=== PATIENT | male | born 1950 | race Caucasian/White ===

== ENCOUNTER 2018-04-10 14:35 | Inpatient (IN) | payer MEDICARE, BC ==
[2018-04-10 16:44] VITALS: BMI 21.7
[2018-04-10] MEDS ORDERED: Ondansetron ODT 4 MG TAB PO PRN (17:19)
[2018-04-10] MEDS ORDERED: Bisacodyl 5 MG TAB PO PRN (17:19)
[2018-04-10] MEDS ORDERED: HYDROcodone/Acetaminophen 5/325 mg Tablet PO PRN ×2 (17:19)
[2018-04-10] MEDS ORDERED: Ondansetron PF 4 MG/2 ML Vial IVP PRN (17:19)
[2018-04-10] MEDS: Acetaminophen 325 MG TAB PO PRN (18:12)
[2018-04-10] MEDS: Sodium Chloride 0.9% 1,000 ML IV SCH (18:13)
[2018-04-10 18:26] LABS: #Basophils 0.1 thou/uL (0.0-0.2); #Eosinphils 0.1 thou/uL (0.0-0.7); #Lymphocytes 2.3 thou/uL (1.20-3.40); #Monocytes 1.4 thou/uL (0.11-0.59); #Neutrophils 7.9 thou/uL (1.40-6.50); %Basophils 0.6 % (0.0-1.0); %Eosinophils 0.8 % (0.0-10.0); %Lymphocytes 19.4 % (21.0-51.0); %Monocytes 11.9 % (0.0-10.0); %Neutrophils 67.4 % (42.0-75.0); Hemoglobin 14.1 g/dL (14.0-18.0); Mean Corpuscular HGB CONC 33.8 g/dL (32.0-36.0); Mean Corpuscular Volume 91.7 fL (78.0-98.0); Mean Platelet Volume 6.5 fL (7.4-10.4); Platelet Count 380 thou/uL (130-400); RBC Distribution Width 11.1 % (11.5-14.5); Red Blood Cell (RBC) Count 4.56 mill/uL (4.70-6.10); White Blood Cell (WBC) Count 11.8 thou/uL (4.8-10.8)
[2018-04-10 18:34] LABS: PTT 30.4 SEC (22.9-36.1); Prothrombin Time 12.9 SEC (12.0-14.7)
[2018-04-10 18:49] LABS: ALT (SGPT) 26 U/L (8-55); AST (SGOT) 18 U/L (5-34); Albumin 3.8 g/dL (3.4-4.8); Alkaline Phosphatase 66 U/L (40-150); Anion Gap 12 mmol/L (10-20); BUN (Urea Nitrogen) 17 mg/dL (8.4-25.7); Bilirubin, Total 0.3 mg/dL (0.2-1.2); Calc. Creatinine Clearance 67 mL/min (70-130); Calcium 8.9 mg/dL (7.8-10.44); Carbon Dioxide 27 mmol/L (23-31); Chloride 100 mmol/L (98-107); Estimated GFR-MDRD 69; Globulin 2.8 g/dL (2.4-3.5); Glucose 100 mg/dL (80-115); Potassium 4.2 mmol/L (3.5-5.1); Protein, Total 6.6 g/dL (5.8-8.1); Sodium 135 mmol/L (136-145)
[2018-04-10] MEDS: Famotidine/PF 20 mg/2ml Vial SLOW IVP SCH (20:08)
--- NOTE | 2018-04-11 01:29 | HP ---
HISTORY OF PRESENT ILLNESS: The patient is a 68-year-old otherwise healthy male, who was originally seen at the [facility] on April 06, 2018, for 3 weeks of progressive behavioral and functional decline. The patient was evaluated with a lab work and CT head in the emergency department and found to have a large brain mass along with corpus callosum. This was evaluated further with MRI during his inpatient stay, which showed a large bifrontal tumor with heterogeneous enhancement, which undoubtably represents malignancy, glioblastoma versus lymphoma. Dr. Arora discussed at length, options of treatment as this is a complicated case, where the tumor could not be surgically removed and overall prognosis for longevity was poor. We recommended stereotactic biopsy to define the diagnosis and for any potential palliative treatment. The patient and family discussed this at length and decided to move forward with brain biopsy. Therefore, the patient was transferred to [facility] for further management and plan for biopsy on 04/13/2018. I have seen the patient at the bedside in his room. He is awake, alert, and comfortable. A and O x4. He is slightly slow to respond, but otherwise has no focal neurologic deficits. PAST MEDICAL HISTORY: Denies any other prior medical problems, otherwise healthy. PAST SURGICAL HISTORY: C3-C4 fusion in 2007, left shoulder reconstruction in 2012, right hernia repair in 1996, and a lipoma of the back removal. ALLERGIES: HE IS ALLERGIC TO SULFA DRUGS. FAMILY HISTORY: Notable for hypothyroidism, congestive heart failure, prostate cancer, coronary artery disease, and CHF. SOCIAL HISTORY: The patient does not smoke. He drinks approximately 1 to 3 beers daily. 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 REVIEW OF SYSTEMS: Per HPI. PHYSICAL EXAMINATION: VITAL SIGNS: Temperature is 97.9, pulse is 72, respirations 18, the patient is 96% on room air, and blood pressure is 129/82. CONSTITUTIONAL: Awake and alert, in no acute distress. HEENT: Head, normocephalic and atraumatic. Eyes, PERRLA. Extraocular movements intact. ENT, oral mucosa is pink and intact. Voice, the patient has normal voice. NECK: Nontender to palpation. Active range of motion. No meningismus. No crudity. CARDIAC: Regular rate and rhythm. LUNGS: The patient is breathing comfortably with symmetric chest expansion. No evidence of dyspnea. MUSCULOSKELETAL: Good muscle tone. Free active range of motion of all extremities. No focal motor weakness. NEUROLOGIC: A and O x4. No focal neurologic deficits are appreciated. ASSESSMENT: Brain mass of unclear etiology. PLAN: The patient will be admitted to the med-surg floor, where we will get MRI of the brain with and without contrast with BrainLAB protocol in preparation for brain biopsy on 04/13/2018. I have discussed this plan with Dr. Arora, who is in agreement. Job ID: [id number]
[2018-04-11] MEDS: Sodium Chloride 0.9% 1,000 ML IV SCH (06:19)
--- NOTE | 2018-04-11 10:16 | MRI ---
MRI BRAIN WITH AND WITHOUT CONTRAST: DATE: 04/11/18 HISTORY: 68-year-old male with brain mass. COMPARISON: none TECHNIQUE: Multiple sequences obtained in axial, sagittal, and coronal planes; pre and post IV injection of gado linium-based contrast agent: 18 mL MultiHance. FINDINGS: There is a large intra-axial brain tumor with very irregular shape, heterogeneous enhancement, and ex tensive central areas of nonenhancing necrotic components, with multicentric distribution. Almost all of the tumor components are contiguous with each other. The exception is a 2 x 2 x 1.5 cm intra-axia l mass at the right parasagittal frontal convexity abutting the anterior portion of the superior sagi ttal sinus. The central component of the tumor is centered at the genu of the corpus callosum, and measures appro ximately 4 x 2.5 x 2.5 cm (although measurements are necessarily imprecise because of the very irregu lar shape). It distorts and inferiorly and posteriorly displaces the frontal horns of the bilateral lateral ventricles. There are small hemorrhagic components scattered throughout the central component of tumor. There are processes of the tumor extending peripherally into the bilateral frontal lobes, right basal ganglia, and right thalamus. Portions of bilateral caudate nuclei are involved. The third ventricle is mildly dilated and mildly distorted, but there is no daylin obstructive hydrocephalus. T here is slight shift of the septum pellucidum to the left, caused by distortion from the main central portion of the tumor. 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 BASILIO Caldwell POS: MARCO
[2018-04-11] MEDS: Famotidine/PF 20 mg/2ml Vial SLOW IVP SCH ×2 (10:22→20:28)
[2018-04-11] MEDS: Acetaminophen 325 MG TAB PO PRN ×3 (12:10→23:28)
[2018-04-12] MEDS: Sodium Chloride 0.9% 1,000 ML IV SCH ×3 (05:03→22:43)
[2018-04-12] MEDS: Acetaminophen 325 MG TAB PO PRN ×3 (09:23→19:24)
[2018-04-12] MEDS: Famotidine/PF 20 mg/2ml Vial SLOW IVP SCH ×2 (11:06→21:16)
[2018-04-13] MEDS ORDERED: CEFAZOLIN 2 GM/50 ML-DEXTROSE 2 GM in Premix Bag 1 BAG IVPB SCH (05:00)
[2018-04-13] MEDS: Acetaminophen 325 MG TAB PO PRN (05:19)
--- NOTE | 2018-04-13 07:50 | PRG ---
DATE OF SERVICE: 04/12/2018 I have seen Mr. Lafleur extensively at [facility], which prompted his transfer here for stereotactic biopsy. He is clinically stable. We obtained a new MRI of the brain with BrainLAB protocol again demonstrating the heterogenous and enhancing bihemispheric frontal mass either glioblastoma or far less likely lymphoma. We will plan to proceed to stereotactic brain biopsy tomorrow and I have discussed the indication, risks, benefits, and alternatives with the family, who have expressed understanding. All questions were answered and they wished to proceed tomorrow. We planned to proceed tomorrow. Job ID: [id number]
[2018-04-13] MEDS: Famotidine/PF 20 mg/2ml Vial SLOW IVP SCH ×2 (09:00→21:56)
[2018-04-13] MEDS: Sodium Chloride 0.9% 1,000 ML IV SCH (12:01)
[2018-04-13] MEDS ORDERED: Fentanyl 250 MCG/5 ML VIAL ONE (13:41)
[2018-04-13] MEDS ORDERED: Midazolam HCl 2 mg/2 ml Vial ONE (13:41)
[2018-04-13] MEDS ORDERED: Lidocaine 0.5%/Epinephrine 1:200,000 50 ml Vial ONE (13:45)
[2018-04-13] MEDS ORDERED: Sodium Chloride 0.9% 10 ML ONE (13:46)
[2018-04-13] MEDS ORDERED: Bacitracin Zinc Ointment 30 gm TUBE ONE (13:46)
[2018-04-13] MEDS: CEFAZOLIN 2 GM/50 ML-DEXTROSE 2 GM in Premix Bag 1 BAG IVPB SCH ×2 (13:58→21:56)
[2018-04-13] MEDS ORDERED: PHENYLEPHRINE-NS 100 MCG/ML 10 ML SYRINGE ONE (14:59)
[2018-04-13] MEDS ORDERED: Lidocaine 1% PF 5 ML VIAL ONE (14:59)
[2018-04-13] MEDS ORDERED: Ondansetron PF 4 MG/2 ML Vial ONE (14:59)
[2018-04-13] MEDS ORDERED: Metoprolol Tartrate 5 MG/5 ML VIAL ONE (14:59)
[2018-04-13] MEDS ORDERED: Dexamethasone 20 MG/5 ML VIAL ONE (14:59)
[2018-04-13] MEDS ORDERED: PROPOFOL 200 MG/20 ML VIAL ONE (14:59)
[2018-04-13] MEDS ORDERED: Glycopyrrolate 0.2 MG/ML 5 ML SYRINGE ONE (14:59)
[2018-04-13] MEDS ORDERED: hydrALAZINE 20 MG/ML VIAL ONE ×2 (15:43→16:50)
--- NOTE | 2018-04-14 00:08 | OP ---
DATE OF PROCEDURE: 04/13/2018 CHILD CARE DIRECTOR: Bryon. PROCEDURE PERFORMED: Computer-assisted intracranial navigation, stereotactic biopsy of right frontal tumor. DESCRIPTION OF PROCEDURE: The patient was brought to the operating room and intubated. He was positioned supine in reverse Trendelenburg. The head was fixed in a milvia packager head, and the stereotactic navigation system was brought into the field and registered. The right frontal region was prepped and draped in sterile fashion, and a phil hole was placed in the right frontal region. Again, using the stereotactic navigation system, we planned a trajectory into the tumor with a region of necrosis and tumor. The needle was advanced without difficulty and multiple specimens were obtained. 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 Multiple specimens were send for frozen section. The needle was irrigated and no bleeding was identified. The needle was then removed and the scalp was closed in anatomic layers. Job ID: [id number]
[2018-04-14] MEDS: Sodium Chloride 0.9% 1,000 ML IV SCH ×2 (02:47→17:20)
[2018-04-14] MEDS: Famotidine/PF 20 mg/2ml Vial SLOW IVP SCH ×2 (10:58→20:27)
[2018-04-14] MEDS: Acetaminophen 325 MG TAB PO PRN ×3 (12:00→21:36)
[2018-04-15] MEDS: Acetaminophen 325 MG TAB PO PRN ×4 (03:21→21:20)
[2018-04-15] MEDS: Sodium Chloride 0.9% 1,000 ML IV SCH ×2 (06:11→17:44)
[2018-04-15] MEDS: Famotidine/PF 20 mg/2ml Vial SLOW IVP SCH ×2 (08:30→21:20)
--- NOTE | 2018-04-15 15:58 | PRG ---
DATE OF SERVICE: 04/15/2018 SUBJECTIVE: The patient visited. His neurologic exam is overall unchanged, but he seems more lethargic and flat. He and his family have decided that he would not be able to make it at home and therefore, we are working on placement planning and even considering hospice. From a neurosurgical perspective, he is medically fine to leave the hospital when appropriate arrangements are made. Awaiting the final pathology and have arranged for appropriate medical and radiation oncology consults next week to consider if he is a candidate for any kind of palliative treatment. Job ID: [id number]
[2018-04-16] MEDS: Acetaminophen 325 MG TAB PO PRN ×2 (05:48→10:52)
[2018-04-16] MEDS: Famotidine/PF 20 mg/2ml Vial SLOW IVP SCH (08:42)
[2018-04-16] MEDS: Sodium Chloride 0.9% 1,000 ML IV SCH (11:39)
[2018-04-16 14:19] VITALS: TEMP 98.4
[2018-04-16 16:44] VITALS: BP 184/96
--- NOTE | 2018-04-20 10:46 | DIS ---
DATE OF ADMISSION: 04/10/2018 DATE OF DISCHARGE: 04/16/2018 HOSPITAL COURSE: The patient is a 68-year-old previously healthy male, originally seen in the [facility] on April 06, 2018, and admitted for progressive cognitive decline and a large, new onset brain mass. The patient was evaluated further with an MRI during his stay, which showed a large bifrontal tumor, which likely represented primary lesion such as glioblastoma versus lymphoma. He was transferred to [facility] on 04/10/2018, to undergo a stereotactic brain biopsy. Brain biopsy, initial frozen pathology revealed what suggested of high-grade glial cells. Final pathology is pending. Following his stay, he was transitioned to the ICU for floor. He remained to have a flattened affect with poor p.o. intake and generally weak throughout. His family felt that it would be difficult to take him home without assistance in care and after several discussions, elected for home hospice. The patient was discharged home on 04/16/2018 in the care of hospice. Job ID: [id number]
== END 2018-04-16 14:05 | disposition hospice, home (50) | DRG 27 ==
LOC: SJJU 16:15 → CCU 04-13 16:12 → SURG A 04-14 14:18
PROVIDERS: ADMIT Neurological Surgery; ATTEND Neurological Surgery
PROC: 00B03ZX Excision of Brain, Percutaneous Approach, Diagnostic (ICD-10-PCS; principal; 2018-04-13)
DX: C71.1 Malignant neoplasm of frontal lobe (principal); Z66 Do not resuscitate; Z88.2 Allergy status to sulfonamides; Z51.5 Encounter for palliative care
CPT/HCPCS: 36415; 70553; 80053; 85025; 85610; 85730; 88305; 88307; 88331; 88334; 88341; 88342; 88360; 90471; 90662; G0008; G8978-GP-CK; G8978-GP-CL; G8979-GP-CJ; G8987-GO-CL; G8987-GO-CM; G8988-GO-CK; G8988-GO-CL; G8990-GO-CN; G8991-GO-CJ; G8996-GN-CJ; G8997-GN-CI; J0131; J0360; J1100; J2001; J2250; J2405; J2704; J3010; J3490; S0028